=== PATIENT | female | born 1940 | race Caucasian/White ===

== ENCOUNTER 2019-10-08 13:56 | Inpatient (IN) ==
[2019-10-08] MEDS ORDERED: D5% in Water 1,000 ML IVC PRN (14:21)
[2019-10-08] MEDS ORDERED: Dextrose Gel 15 GM/37.5 ML TUBE PO PRN ×2 (14:21)
[2019-10-08] MEDS ORDERED: *HR* Dextrose 50 % in Water (Syg) 50 ML SYRINGE IVP PRN (14:21)
[2019-10-08] MEDS: Insulin LISPRO 300 UNITS/3 ML VIAL SQ SCH ×2 (16:48→20:55)
[2019-10-08] MEDS: Melatonin 3 MG TABLET PO SCH (20:55)
[2019-10-08] MEDS: risperiDONE 1 MG TABLET PO SCH (20:55)
[2019-10-08] MEDS: *HR* LORazepam 1 MG TABLET PO PRN (21:29)
[2019-10-09] MEDS: *HR* Enoxaparin 30 MG/0.3 ML SYRINGE SQ SCH (05:14)
[2019-10-09 05:15] LABS: Basophils # 0.1 K/mcL (0.0-0.2); Basophils % 0.8 %; Eosinophils # 0.3 K/mcL (0.0-0.6); Eosinophils % 4.1 %; Hematocrit 37.2 % (35.3-44.9); Hemoglobin 12.2 g/dL (11.5-15.4); Immature Granulocytes % 0.8 % (0-4); Lymphocytes # 1.3 K/mcL (0.6-4.6); Lymphocytes % 19.6 %; Mean Corpuscular HGB Conc 32.8 g/dL (31.6-35.5); Mean Corpuscular Hemoglobin 26.3 pg (28.0-33.3); Mean Corpuscular Volume 80.3 fL (83.0-100.0); Mean Platelet Volume 9.5 fL (9.4-12.4); Monocytes # 0.8 K/mcL (0.0-1.3); Monocytes % 11.9 %; Neutrophils # 4.2 K/mcL (1.6-8.9); Platelet Count 192 K/mcL (140-400); Red Blood Count 4.63 M/mcL (3.82-4.97); Red Cell Distribution Width 16.4 % (11.5-14.5); Segmented Neutrophils % 62.8 %; White Blood Count 6.6 K/mcL (4.3-11.1)
[2019-10-09 05:33] LABS: Albumin 3.4 g/dL (3.5-5.7); Albumin/Globulin Ratio 1.4 (1.1-2.2); Bilirubin,Total 0.4 mg/dL (0.3-1.0); Calcium 9.3 mg/dL (8.6-10.3); Globulin 2.4 g/dL (2.4-3.5); Magnesium 2.1 mg/dL (1.6-2.6); Potassium 3.4 mEq/L (3.5-5.1); Total Protein 5.8 g/dL (6.4-8.9)
[2019-10-09] MEDS: amLODIPine 5 MG TABLET PO SCH (08:18)
[2019-10-09] MEDS: Aspirin Enteric Coated 81 MG Tablet PO SCH (08:18)
[2019-10-09] MEDS: risperiDONE 1 MG TABLET PO SCH ×2 (08:18→20:35)
[2019-10-09] MEDS: Insulin LISPRO 300 UNITS/3 ML VIAL SQ SCH ×4 (08:19→20:36)
[2019-10-09 09:44] LABS: Estimated Average Glucose 183 mg/dl
[2019-10-09] MEDS: *HR* Pioglitazone 15 MG TABLET PO SCH (11:26)
[2019-10-09] MEDS: Nicotine 21 MG PATCH.TD24 TD SCH (15:20)
[2019-10-09] MEDS: *HR* LORazepam 1 MG TABLET PO PRN (20:36)
[2019-10-09] MEDS: Melatonin 3 MG TABLET PO SCH (20:36)
[2019-10-10 05:21] LABS: Hematocrit 36.1 % (35.3-44.9); Hemoglobin 11.9 g/dL (11.5-15.4); Mean Corpuscular Hemoglobin 26.3 pg (28.0-33.3); Mean Corpuscular Volume 79.7 fL (83.0-100.0); Mean Platelet Volume 9.2 fL (9.4-12.4); Platelet Count 180 K/mcL (140-400); Red Blood Count 4.53 M/mcL (3.82-4.97); Red Cell Distribution Width 16.4 % (11.5-14.5); White Blood Count 7.3 K/mcL (4.3-11.1)
[2019-10-10 05:44] LABS: Calcium 9.4 mg/dL (8.6-10.3); Magnesium 2.2 mg/dL (1.6-2.6)
[2019-10-10] MEDS: *HR* Enoxaparin 30 MG/0.3 ML SYRINGE SQ SCH (06:06)
[2019-10-10] MEDS: Insulin LISPRO 300 UNITS/3 ML VIAL SQ SCH ×4 (07:56→20:05)
[2019-10-10] MEDS: Aspirin Enteric Coated 81 MG Tablet PO SCH (08:34)
[2019-10-10] MEDS: polyethylene glycoL 3350 17 GM POWD.PACK PO SCH (08:34)
[2019-10-10] MEDS: Nicotine 21 MG PATCH.TD24 TD SCH (08:34)
[2019-10-10] MEDS: risperiDONE 1 MG TABLET PO SCH ×2 (08:34→20:18)
[2019-10-10] MEDS: amLODIPine 5 MG TABLET PO SCH (08:35)
[2019-10-10] MEDS: *HR* Pioglitazone 15 MG TABLET PO SCH (12:32)
[2019-10-10] MEDS ORDERED: 0.9 % Sodium Chloride 1,000 ML IVC SCH (14:45)
[2019-10-10] MEDS: Melatonin 3 MG TABLET PO SCH (20:18)
[2019-10-10] MEDS: Mirtazapine 15 MG TABLET PO SCH (20:19)
[2019-10-10] MEDS: *HR* LORazepam 1 MG TABLET PO PRN (20:23)
[2019-10-11 05:17] LABS: Hematocrit 35.3 % (35.3-44.9); Hemoglobin 11.6 g/dL (11.5-15.4); Mean Corpuscular HGB Conc 32.9 g/dL (31.6-35.5); Mean Corpuscular Hemoglobin 26.4 pg (28.0-33.3); Mean Corpuscular Volume 80.4 fL (83.0-100.0); Mean Platelet Volume 9.3 fL (9.4-12.4); Platelet Count 197 K/mcL (140-400); Red Blood Count 4.39 M/mcL (3.82-4.97); Red Cell Distribution Width 16.7 % (11.5-14.5); White Blood Count 7.1 K/mcL (4.3-11.1)
[2019-10-11 05:34] LABS: Calcium 8.8 mg/dL (8.6-10.3); Potassium 3.9 mEq/L (3.5-5.1)
[2019-10-11] MEDS: *HR* Enoxaparin 30 MG/0.3 ML SYRINGE SQ SCH (06:20)
[2019-10-11] MEDS: Insulin LISPRO 300 UNITS/3 ML VIAL SQ SCH ×4 (07:17→20:05)
[2019-10-11] MEDS: polyethylene glycoL 3350 17 GM POWD.PACK PO SCH (08:25)
[2019-10-11] MEDS: Aspirin Enteric Coated 81 MG Tablet PO SCH (08:26)
[2019-10-11] MEDS: Cholecalciferol (D-3) 1,000 UNIT (25MCG) TABLET PO SCH (08:27)
[2019-10-11] MEDS: Multivit/Ca/Min/Fe/FA 1 TAB TABLET PO SCH (08:27)
[2019-10-11] MEDS: Nicotine 21 MG PATCH.TD24 TD SCH (08:27)
[2019-10-11] MEDS: amLODIPine 5 MG TABLET PO SCH (08:27)
[2019-10-11] MEDS: Vitamin E 200 UNIT (90MG) CAPSULE PO SCH (08:27)
[2019-10-11] MEDS: risperiDONE 1 MG TABLET PO SCH ×2 (08:27→20:13)
[2019-10-11] MEDS: *HR* Pioglitazone 15 MG TABLET PO SCH (12:02)
[2019-10-11] MEDS: Melatonin 3 MG TABLET PO SCH (20:12)
[2019-10-11] MEDS: *HR* LORazepam 1 MG TABLET PO PRN (20:13)
[2019-10-11] MEDS: Mirtazapine 15 MG TABLET PO SCH (20:13)
[2019-10-12] MEDS: *HR* Enoxaparin 30 MG/0.3 ML SYRINGE SQ SCH (06:42)
[2019-10-12] MEDS: Insulin LISPRO 300 UNITS/3 ML VIAL SQ SCH ×4 (07:42→20:02)
[2019-10-12] MEDS: Vitamin E 200 UNIT (90MG) CAPSULE PO SCH (08:14)
[2019-10-12] MEDS: Multivit/Ca/Min/Fe/FA 1 TAB TABLET PO SCH (08:14)
[2019-10-12] MEDS: Aspirin Enteric Coated 81 MG Tablet PO SCH (08:15)
[2019-10-12] MEDS: amLODIPine 5 MG TABLET PO SCH (08:15)
[2019-10-12] MEDS: Cholecalciferol (D-3) 1,000 UNIT (25MCG) TABLET PO SCH (08:16)
[2019-10-12] MEDS: risperiDONE 1 MG TABLET PO SCH ×2 (08:16→20:02)
[2019-10-12] MEDS: polyethylene glycoL 3350 17 GM POWD.PACK PO SCH (08:17)
[2019-10-12] MEDS: Nicotine 21 MG PATCH.TD24 TD SCH (08:17)
[2019-10-12] MEDS: *HR* Pioglitazone 15 MG TABLET PO SCH (11:54)
[2019-10-12] MEDS: *HR* LORazepam 1 MG TABLET PO PRN (20:01)
[2019-10-12] MEDS: Melatonin 3 MG TABLET PO SCH (20:01)
[2019-10-12] MEDS: Mirtazapine 15 MG TABLET PO SCH (20:02)
[2019-10-13 05:44] LABS: Basophils # 0.1 K/mcL (0.0-0.2); Basophils % 0.8 %; Eosinophils # 0.3 K/mcL (0.0-0.6); Eosinophils % 4.1 %; Hematocrit 35.7 % (35.3-44.9); Hemoglobin 11.5 g/dL (11.5-15.4); Immature Granulocytes % 0.8 % (0-4); Lymphocytes # 1.4 K/mcL (0.6-4.6); Lymphocytes % 18.5 %; Mean Corpuscular HGB Conc 32.2 g/dL (31.6-35.5); Mean Corpuscular Hemoglobin 26.1 pg (28.0-33.3); Mean Platelet Volume 9.3 fL (9.4-12.4); Monocytes % 13.7 %; Neutrophils # 4.7 K/mcL (1.6-8.9); Platelet Count 201 K/mcL (140-400); Red Blood Count 4.41 M/mcL (3.82-4.97); Red Cell Distribution Width 17.1 % (11.5-14.5); Segmented Neutrophils % 62.1 %; White Blood Count 7.5 K/mcL (4.3-11.1)
[2019-10-13 06:00] LABS: Calcium 9.3 mg/dL (8.6-10.3); Potassium 4.8 mEq/L (3.5-5.1)
[2019-10-13] MEDS: *HR* Enoxaparin 30 MG/0.3 ML SYRINGE SQ SCH (06:09)
[2019-10-13] MEDS: Insulin LISPRO 300 UNITS/3 ML VIAL SQ SCH ×4 (07:20→19:55)
[2019-10-13] MEDS: Multivit/Ca/Min/Fe/FA 1 TAB TABLET PO SCH (08:09)
[2019-10-13] MEDS: amLODIPine 5 MG TABLET PO SCH (08:09)
[2019-10-13] MEDS: Aspirin Enteric Coated 81 MG Tablet PO SCH (08:09)
[2019-10-13] MEDS: Vitamin E 200 UNIT (90MG) CAPSULE PO SCH (08:09)
[2019-10-13] MEDS: polyethylene glycoL 3350 17 GM POWD.PACK PO SCH (08:09)
[2019-10-13] MEDS: Cholecalciferol (D-3) 1,000 UNIT (25MCG) TABLET PO SCH (08:09)
[2019-10-13] MEDS: Nicotine 21 MG PATCH.TD24 TD SCH (08:09)
[2019-10-13] MEDS: risperiDONE 1 MG TABLET PO SCH ×2 (08:10→19:54)
[2019-10-13] MEDS: 0.9 % Sodium Chloride 1,000 ML IVC SCH ×2 (10:54→19:56)
[2019-10-13] MEDS: *HR* Pioglitazone 15 MG TABLET PO SCH (12:03)
[2019-10-13] MEDS: *HR* LORazepam 1 MG TABLET PO PRN (19:55)
[2019-10-13] MEDS: Mirtazapine 15 MG TABLET PO SCH (19:55)
[2019-10-13] MEDS: Melatonin 3 MG TABLET PO SCH (19:55)
[2019-10-14] MEDS: 0.9 % Sodium Chloride 1,000 ML IVC SCH (04:54)
[2019-10-14] MEDS: *HR* Enoxaparin 30 MG/0.3 ML SYRINGE SQ SCH (04:55)
[2019-10-14 06:01] LABS: Calcium 8.8 mg/dL (8.6-10.3); Potassium 4.9 mEq/L (3.5-5.1)
[2019-10-14] MEDS: Vitamin E 200 UNIT (90MG) CAPSULE PO SCH (07:57)
[2019-10-14] MEDS: Multivit/Ca/Min/Fe/FA 1 TAB TABLET PO SCH (07:58)
[2019-10-14] MEDS: Nicotine 21 MG PATCH.TD24 TD SCH (07:58)
[2019-10-14] MEDS: risperiDONE 1 MG TABLET PO SCH ×2 (07:58→21:02)
[2019-10-14] MEDS: Cholecalciferol (D-3) 1,000 UNIT (25MCG) TABLET PO SCH (07:58)
[2019-10-14] MEDS: Aspirin Enteric Coated 81 MG Tablet PO SCH (07:58)
[2019-10-14] MEDS: Insulin LISPRO 300 UNITS/3 ML VIAL SQ SCH ×4 (07:58→21:13)
[2019-10-14] MEDS: polyethylene glycoL 3350 17 GM POWD.PACK PO SCH (07:58)
[2019-10-14] MEDS: *HR* Pioglitazone 15 MG TABLET PO SCH (13:07)
[2019-10-14] MEDS ORDERED: *HR* LORazepam 0.5 MG TABLET PO ONE (15:15)
[2019-10-14] MEDS: Mirtazapine 15 MG TABLET PO SCH (21:02)
[2019-10-14] MEDS: Melatonin 3 MG TABLET PO SCH (21:02)
[2019-10-14] MEDS: *HR* LORazepam 1 MG TABLET PO PRN (21:05)
[2019-10-15] MEDS: *HR* Enoxaparin 30 MG/0.3 ML SYRINGE SQ SCH (05:43)
[2019-10-15] MEDS: Insulin LISPRO 300 UNITS/3 ML VIAL SQ SCH ×4 (07:56→22:07)
[2019-10-15] MEDS: Vitamin E 200 UNIT (90MG) CAPSULE PO SCH (08:09)
[2019-10-15] MEDS: Multivit/Ca/Min/Fe/FA 1 TAB TABLET PO SCH (08:09)
[2019-10-15] MEDS: Cholecalciferol (D-3) 1,000 UNIT (25MCG) TABLET PO SCH (08:10)
[2019-10-15] MEDS: Aspirin Enteric Coated 81 MG Tablet PO SCH (08:10)
[2019-10-15] MEDS: risperiDONE 1 MG TABLET PO SCH ×2 (08:11→20:44)
[2019-10-15] MEDS: polyethylene glycoL 3350 17 GM POWD.PACK PO SCH (08:12)
[2019-10-15] MEDS: Nicotine 21 MG PATCH.TD24 TD SCH (08:12)
[2019-10-15] MEDS: *HR* Pioglitazone 15 MG TABLET PO SCH (12:50)
[2019-10-15] MEDS ORDERED: *HR* LORazepam 0.5 MG TABLET PO ONE (14:15)
[2019-10-15] MEDS: Mirtazapine 15 MG TABLET PO SCH (20:46)
[2019-10-15] MEDS: Melatonin 3 MG TABLET PO SCH (20:46)
[2019-10-15] MEDS: *HR* LORazepam 1 MG TABLET PO PRN (20:55)
[2019-10-16] MEDS ORDERED: *HR* Enoxaparin 40 MG/0.4 ML SYRINGE SQ SCH (06:00)
[2019-10-16 07:14] VITALS: BP 167/75
[2019-10-16] MEDS: Insulin LISPRO 300 UNITS/3 ML VIAL SQ SCH ×2 (07:30→12:37)
[2019-10-16] MEDS: Vitamin E 200 UNIT (90MG) CAPSULE PO SCH (07:43)
[2019-10-16] MEDS: Aspirin Enteric Coated 81 MG Tablet PO SCH (07:43)
[2019-10-16] MEDS: Cholecalciferol (D-3) 1,000 UNIT (25MCG) TABLET PO SCH (07:43)
[2019-10-16] MEDS: polyethylene glycoL 3350 17 GM POWD.PACK PO SCH (07:44)
[2019-10-16] MEDS: risperiDONE 1 MG TABLET PO SCH (07:44)
[2019-10-16] MEDS: Nicotine 21 MG PATCH.TD24 TD SCH (07:44)
[2019-10-16] MEDS: Multivit/Ca/Min/Fe/FA 1 TAB TABLET PO SCH (07:44)
[2019-10-16] MEDS: *HR* Pioglitazone 15 MG TABLET PO SCH (13:55)
== END 2019-10-16 14:51 | disposition home health service (06) | DRG 945 ==
LOC: INPGRE 13:56
PROVIDERS: ADMIT Family Medicine; ATTEND Family Medicine